=== PATIENT | male | born 1955 | race Two or more races ===

== ENCOUNTER → 2017-05-13 | Outpatient (CLI) | payer OTHER | END | disposition home or self-care (01) | LOC: TOM 07:45 | DX: K76.0 Fatty (change of) liver, not elsewhere classified (principal) ==

== ENCOUNTER → 2018-02-06 08:47 | Outpatient (CLI) | payer OTHER | END | disposition home or self-care (01) | LOC: LAB 08:47 | DX: I10 Essential (primary) hypertension (principal); N40.0 Benign prostatic hyperplasia without lower urinary tract symptoms; E03.8 Other specified hypothyroidism; E78.2 Mixed hyperlipidemia; E08.9 Diabetes mellitus due to underlying condition without complications; M25.572 Pain in left ankle and joints of left foot ==

== ENCOUNTER → 2018-05-17 | Emergency (ER) | payer OTHER ==
[~2018-05-17] VITALS: Ht 170.2 cm; Wt 90.7 kg
[~2018-05-17] MED LIST: COZAAR100 MG; CRESTOR10 MG; DIAZEPAM10 MG PO; NAPROXEN500 MG PO; SKELAXIN800 MG PO; VERAPAMIL ER240 MG
== END | disposition home or self-care (01) ==
LOC: ER 14:47
DX: G44.209 Tension-type headache, unspecified, not intractable (principal)

== ENCOUNTER 2018-05-19 15:20 | Outpatient (CLI) | payer OTHER | END 2018-05-19 15:33 | disposition home or self-care (01) | LOC: RAD 15:20 | DX: M62.830 Muscle spasm of back (principal) ==

== ENCOUNTER 2018-07-23 09:45 | Outpatient (CLI) | payer OTHER | END 2018-07-23 17:00 | disposition home or self-care (01) | LOC: TOM 09:45 | DX: M48.02 Spinal stenosis, cervical region (principal); M47.812 Spondylosis without myelopathy or radiculopathy, cervical region; M54.2 Cervicalgia ==

== ENCOUNTER → 2018-07-31 | Outpatient (CLI) | payer OTHER | END | disposition home or self-care (01) | LOC: NUCLEAR 14:30 | DX: M48.02 Spinal stenosis, cervical region (principal); M47.812 Spondylosis without myelopathy or radiculopathy, cervical region; M54.2 Cervicalgia ==

== ENCOUNTER 2019-05-05 09:11 | Outpatient (CLI) | payer OTHER | END 2019-05-05 09:31 | disposition home or self-care (01) | LOC: LAB 09:11 | DX: D50.8 Other iron deficiency anemias (principal); I10 Essential (primary) hypertension; D55.0 Anemia due to glucose-6-phosphate dehydrogenase [G6PD] deficiency; D51.1 Vitamin B12 deficiency anemia due to selective vitamin B12 malabsorption with proteinuria; E06.3 Autoimmune thyroiditis; R97.8 Other abnormal tumor markers; R97.20 Elevated prostate specific antigen [PSA]; D63.1 Anemia in chronic kidney disease; N18.9 Chronic kidney disease, unspecified; D63.8 Anemia in other chronic diseases classified elsewhere; E29.1 Testicular hypofunction; N39.0 Urinary tract infection, site not specified; R80.8 Other proteinuria; R94.4 Abnormal results of kidney function studies; Z80.0 Family history of malignant neoplasm of digestive organs; D51.3 Other dietary vitamin B12 deficiency anemia; H40.89 Other specified glaucoma; N40.0 Benign prostatic hyperplasia without lower urinary tract symptoms ==

== ENCOUNTER 2019-05-06 10:29 | Outpatient (CLI) | payer OTHER | END 2019-05-06 10:39 | disposition home or self-care (01) | LOC: LAB 10:29 | DX: D50.8 Other iron deficiency anemias (principal); D55.0 Anemia due to glucose-6-phosphate dehydrogenase [G6PD] deficiency; D63.1 Anemia in chronic kidney disease; Z80.0 Family history of malignant neoplasm of digestive organs; D51.3 Other dietary vitamin B12 deficiency anemia; N40.0 Benign prostatic hyperplasia without lower urinary tract symptoms; H40.89 Other specified glaucoma; N18.9 Chronic kidney disease, unspecified ==

== ENCOUNTER 2019-05-06 10:52 | Outpatient (CLI) | payer OTHER | END 2019-05-06 10:53 | disposition home or self-care (01) | LOC: SONOGRAMA 10:52 → MAMO-SONO 11:15 | DX: D50.8 Other iron deficiency anemias (principal); D51.3 Other dietary vitamin B12 deficiency anemia; I10 Essential (primary) hypertension; Z80.0 Family history of malignant neoplasm of digestive organs; H40.89 Other specified glaucoma; N40.0 Benign prostatic hyperplasia without lower urinary tract symptoms; E03.8 Other specified hypothyroidism ==

== ENCOUNTER 2019-06-08 07:37 | Outpatient (CLI) | payer OTHER | END 2019-06-08 07:39 | disposition home or self-care (01) | LOC: SONOGRAMA 07:37 | DX: E04.1 Nontoxic single thyroid nodule (principal) ==

== ENCOUNTER → 2019-08-25 10:46 | Outpatient (CLI) | payer OTHER | END | disposition home or self-care (01) | LOC: LAB 10:46 | DX: N39.0 Urinary tract infection, site not specified (principal); R80.8 Other proteinuria; R94.4 Abnormal results of kidney function studies; Z80.0 Family history of malignant neoplasm of digestive organs; D51.1 Vitamin B12 deficiency anemia due to selective vitamin B12 malabsorption with proteinuria; D50.8 Other iron deficiency anemias; D51.3 Other dietary vitamin B12 deficiency anemia; I10 Essential (primary) hypertension; H40.89 Other specified glaucoma; N40.0 Benign prostatic hyperplasia without lower urinary tract symptoms; R97.20 Elevated prostate specific antigen [PSA]; R97.0 Elevated carcinoembryonic antigen [CEA]; E04.2 Nontoxic multinodular goiter; D51.8 Other vitamin B12 deficiency anemias ==

== ENCOUNTER → 2019-12-04 | Outpatient (CLI) | payer OTHER | END | disposition home or self-care (01) | LOC: RAD 11:29 | PROVIDERS: ATTEND Podiatrist | DX: S93.601A Unspecified sprain of right foot, initial encounter (principal); S93.602A Unspecified sprain of left foot, initial encounter; S93.401A Sprain of unspecified ligament of right ankle, initial encounter; S93.402A Sprain of unspecified ligament of left ankle, initial encounter ==

== ENCOUNTER 2019-12-31 11:00 | Outpatient (CLI) | payer OTHER | END 2019-12-31 11:09 | disposition home or self-care (01) | LOC: SONOGRAMA 11:00 | PROVIDERS: ATTEND Pathology Anatomic Pathology & Clinical Pathology | DX: E04.2 Nontoxic multinodular goiter (principal) ==

== ENCOUNTER 2020-04-06 13:32 | Outpatient (CLI) | payer OTHER | END 2020-04-06 13:37 | disposition HB | LOC: RAD 13:32 | PROVIDERS: ATTEND Physical Medicine & Rehabilitation | DX: G95.89 Other specified diseases of spinal cord (principal); M62.830 Muscle spasm of back ==

== ENCOUNTER 2022-03-13 08:26 | Outpatient (CLI) | payer OTHER | END 2022-03-13 08:27 | disposition home or self-care (01) | LOC: LAB 08:26 | PROVIDERS: ATTEND Specialist | DX: I10 Essential (primary) hypertension (principal); E11.9 Type 2 diabetes mellitus without complications; N41.1 Chronic prostatitis ==

== ENCOUNTER 2022-06-27 15:02 | Outpatient (CLI) | payer OTHER | END 2022-06-27 15:13 | disposition home or self-care (01) | LOC: RAD 15:02 | PROVIDERS: ATTEND General Practice | DX: J70.5 Respiratory conditions due to smoke inhalation (principal) ==

== ENCOUNTER 2022-07-16 10:15 | Outpatient (CLI) | payer OTHER | END 2022-07-16 10:34 | disposition home or self-care (01) | LOC: TOM 10:15 | PROVIDERS: ATTEND General Practice | DX: K86.2 Cyst of pancreas (principal); K57.92 Diverticulitis of intestine, part unspecified, without perforation or abscess without bleeding ==

== ENCOUNTER 2022-09-04 10:47 | Outpatient (CLI) | payer OTHER | END 2022-09-04 11:06 | disposition home or self-care (01) | LOC: SONOGRAMA 10:47 | PROVIDERS: ATTEND Specialist | DX: N28.1 Cyst of kidney, acquired (principal) ==

== ENCOUNTER 2022-09-21 10:15 | Outpatient (CLI) | payer OTHER | END 2022-09-21 10:27 | disposition home or self-care (01) | LOC: TOM 10:15 | DX: J90 Pleural effusion, not elsewhere classified (principal); Z12.2 Encounter for screening for malignant neoplasm of respiratory organs ==

== ENCOUNTER 2023-11-20 11:32 | Outpatient (CLI) | payer OTHER | END 2023-11-20 11:37 | disposition home or self-care (01) | LOC: RAD 11:32 | PROVIDERS: ATTEND Physical Medicine & Rehabilitation | DX: M54.50 Low back pain, unspecified (principal) ==

== ENCOUNTER 2024-07-21 11:16 | Outpatient (CLI) | payer OTHER | END 2024-07-21 11:18 | disposition home or self-care (01) | LOC: TOM 11:16 | DX: J98.4 Other disorders of lung (principal); J99 Respiratory disorders in diseases classified elsewhere; Z12.2 Encounter for screening for malignant neoplasm of respiratory organs ==

== ENCOUNTER 2024-09-07 09:54 | Outpatient (CLI) | payer OTHER | END 2024-09-07 10:06 | disposition home or self-care (01) | LOC: SONOGRAMA 09:54 | DX: J98.6 Disorders of diaphragm (principal); R10.84 Generalized abdominal pain ==

== ENCOUNTER 2024-09-15 08:54 | Outpatient (CLI) | payer OTHER | END 2024-09-15 09:03 | disposition home or self-care (01) | LOC: TOM 08:54 | DX: R10.84 Generalized abdominal pain (principal); J98.6 Disorders of diaphragm | CPT/HCPCS: 71270; 74178; Q9965 ==

== ENCOUNTER 2024-12-17 05:19 | Emergency (ER) | payer OTHER ==
[~2024-12-17] VITALS: Ht 170.2 cm; Wt 81.6 kg
[2024-12-17] MEDS ORDERED: AZELASTINE137 MCG/0. NASAL (05:29)
[2024-12-17] MEDS ORDERED: ALPHAGAN P5 M2 OP (05:30)
[2024-12-17] MEDS ORDERED: VENTOLIN HFA18 GM (05:31)
[2024-12-17] MEDS ORDERED: KETOROLAC TROMETHAMINE 30 MG VIAL IV STA (05:49)
[2024-12-17] MEDS ORDERED: 0.9 % SODIUM CHLORIDE 1,000 ML IV ONE (06:00)
[2024-12-17] MEDS ORDERED: DIATRIZOATE MEGLUMINE, SODIUM 30 ML BOTTLE ONE (06:06)
[2024-12-17] MEDS ORDERED: KETOROLAC TROMETHAMINE 30 MG VIAL ONE (06:06)
[2024-12-17 06:56] LABS: BASO % 0.6 % (0.1-1.2); EOS # 0.30 (0.04-0.54); EOS % 2.8 % (0.7-7.0); LYMPH # 1.20 (1.18-3.74); LYMPH % 11.3 % (19.3-53.1); MEAN PLATELET VOLUME 8.90 fl (9.4-12.4); MONO # 1.01 (0.24-0.82); MONO % 9.5 % (4.7-12.5); NEUT # 8.02 (1.56-6.13); NEUT % 75.2 % (34.0-71.1); RED CELL DISTRIBUTION WIDTH 13.9 % (11.6-14.4)
[2024-12-17 07:20] LABS: INR < 0.93
[2024-12-17 07:45] LABS: ALT/SGPT 29.0 U/L (12-78); AST/SGOT 21.0 U/L (15-37); BILIRUBIN TOTAL 0.38 mg/dL (0.3-1.2); BUN CREA RATIO 29.0 (7.0-25.0); CREATININE SERUM 1.22 mg/dL (0.70-1.30); GFR 58.9; GLOBULINA 3.7 G/DL (2.4-3.5); GLUCOSE FASTING 93.0 mg/dL (65-100); OSMOLALITY SERUM 291.0 MOSM/KG (275-295)
[2024-12-17 07:48] LABS: URINE APPEARANCE Clear; URINE BILIRRUBIN Negative (NEGATIVE); URINE BLOOD NHT; URINE COLOR Yellow; URINE GLUCOSE Negative (NEGATIVE); URINE KETONE 15 (NEGATIVE); URINE LEUKOCYTE Moderate; URINE NITRATE Positive; URINE PROTEIN 30 (NEGATIVE); URINE UROBILINOGEN 0.2 E.U./dl
[2024-12-17 07:51] LABS: URINE BACTERIA 174.0 uL (0.0-1933); URINE EPITHELIAL CELLS 6.1 uL (0.0-38.8); URINE RBC 28.4 uL (0.0-20.8); URINE WBC 251.5 uL (0.0-23.2)
[2024-12-17 07:54] LABS: URINE CAST 0.29 uL (0.0-1.40)
[2024-12-17] MEDS ORDERED: CIPROFLOXACIN IN 5 % DEXTROSE 400 MG/200 ML PIGGYBAG IV STA (07:57)
[2024-12-17] MEDS ORDERED: CIPROFLOXACIN IN 5 % DEXTROSE 400 MG/200 ML PIGGYBAG IV ONE (07:59)
== END 2024-12-17 11:54 | disposition home or self-care (01) ==
LOC: ER 05:47
PROVIDERS: General Practice
DX: N39.0 Urinary tract infection, site not specified (principal); R10.32 Left lower quadrant pain; I10 Essential (primary) hypertension
CPT/HCPCS: 36415; 74177; 99284; Q9965

== ENCOUNTER 2025-01-07 13:34 | Outpatient (CLI) | payer OTHER ==
[~2025-01-07 13:34] MED LIST changes: +ALPHAGAN P5 M2 OP; +AZELASTINE137 MCG/0. NASAL; +VENTOLIN HFA18 GM
== END 2025-01-07 13:41 | disposition home or self-care (01) ==
LOC: SONOGRAMA 13:34
PROVIDERS: ATTEND Specialist/Technologist, Other Nephrology
DX: R10.9 Unspecified abdominal pain (principal); N18.30 Chronic kidney disease, stage 3 unspecified; R31.9 Hematuria, unspecified

== ENCOUNTER 2025-01-11 12:41 | Outpatient (CLI) | payer OTHER | END 2025-01-11 12:46 | disposition home or self-care (01) | LOC: RAD 12:41 | DX: R07.89 Other chest pain (principal) ==

== ENCOUNTER 2025-04-09 12:48 | Emergency (ER) | payer OTHER ==
[~2025-04-09] VITALS: Ht 170.2 cm; Wt 83.9 kg
[2025-04-09 13:06] VITALS: BP 127/67; O2SAT 98
[2025-04-09] MEDS ORDERED: TRAMADOL HCL 50 MG TABLET PO STA (14:24)
[2025-04-09] MEDS ORDERED: KETOROLAC TROMETHAMINE 15 MG VIAL IV STA (14:24)
[2025-04-09] MEDS ORDERED: SODIUM CHLORIDE 0.45 % 1,000 ML IV STA (14:25)
[2025-04-09] MEDS ORDERED: KETOROLAC TROMETHAMINE 30 MG VIAL ONE (15:00)
[2025-04-09 15:32] LABS: BASO % 0.4 % (0.1-1.2); EOS # 0.14 (0.04-0.54); EOS % 0.9 % (0.7-7.0); LYMPH # 1.31 (1.18-3.74); LYMPH % 8.0 % (19.3-53.1); MEAN PLATELET VOLUME 8.50 fl (9.4-12.4); MONO # 1.12 (0.24-0.82); MONO % 6.8 % (4.7-12.5); NEUT # 13.74 (1.56-6.13); NEUT % 83.4 % (34.0-71.1); RED CELL DISTRIBUTION WIDTH 13.8 % (11.6-14.4)
[2025-04-09 15:59] LABS: ALT/SGPT 31.0 U/L (12-78); AST/SGOT 22.0 U/L (15-37); BILIRUBIN TOTAL 0.8 mg/dL (0.3-1.2); BUN CREA RATIO 19.0 (7.0-25.0); CREATININE SERUM 1.08 mg/dL (0.70-1.30); GFR 67.79; GLOBULINA 3.4 G/DL (2.4-3.5); GLUCOSE FASTING 98.0 mg/dL (65-100); OSMOLALITY SERUM 288.0 MOSM/KG (275-295)
[2025-04-09 16:57] LABS: URINE APPEARANCE Clear; URINE BILIRRUBIN Negative (NEGATIVE); URINE BLOOD Small; URINE COLOR Dark Yellow; URINE GLUCOSE Negative (NEGATIVE); URINE KETONE 15 (NEGATIVE); URINE LEUKOCYTE Moderate; URINE NITRATE Negative; URINE PROTEIN Negative (NEGATIVE); URINE UROBILINOGEN 0.2 E.U./dl
[2025-04-09 17:02] LABS: URINE BACTERIA 524.9 uL (0.0-1933); URINE RBC 63.6 uL (0.0-20.8); URINE WBC 637.3 uL (0.0-23.2)
[2025-04-09 17:07] LABS: URINE CAST 0.00 uL (0.0-1.40); URINE EPITHELIAL CELLS 0.3 uL (0.0-38.8)
[2025-04-09] MEDS ORDERED: METRONIDAZOLE/SODIUM CHLORIDE 500 MG/100 ML PIGGYBACK IV STA (17:13)
[2025-04-09] MEDS ORDERED: CIPROFLOXACIN IN 5 % DEXTROSE 400 MG/200 ML PIGGYBAG IV STA (17:13)
[2025-04-09] MEDS ORDERED: METRONIDAZOLE/SODIUM CHLORIDE 500 MG/100 ML PIGGYBACK IV ONE (18:05)
[2025-04-09] MEDS ORDERED: CIPROFLOXACIN IN 5 % DEXTROSE 400 MG/200 ML PIGGYBAG IV ONE (18:05)
== END 2025-04-09 21:59 | disposition home or self-care (01) ==
LOC: ER 12:49
PROVIDERS: General Practice
DX: N20.0 Calculus of kidney (principal); R10.A1 Flank pain, right side
CPT/HCPCS: 36415; 74176; 96365; 99284; J0744; J1885; J3490

== ENCOUNTER → 2025-04-21 | Emergency (ER) | payer OTHER ==
[~2025-04-21] VITALS: Ht 167.6 cm; Wt 72.6 kg
[~2025-04-21] MED LIST changes: +0.9 % SODIUM CHLORIDE 1,000 ML IV SCH; +CEFTRIAXONE SODIUM 1,000 MG VIAL IV ONE; +FAMOTIDINE/PF 20 MG/2 ML VIAL IV ONE; +KETOROLAC TROMETHAMINE 30 MG VIAL IM ONE; +TAMSULOSIN HCL 0.4 MG CAP PO ONE; +TRAMADOL HCL 50 MG TABLET PO ONE
[2025-04-21 11:44] LABS: BASO % 0.2 % (0.1-1.2); EOS # 0.07 (0.04-0.54); EOS % 0.3 % (0.7-7.0); LYMPH # 0.96 (1.18-3.74); LYMPH % 4.6 % (19.3-53.1); MEAN PLATELET VOLUME 8.60 fl (9.4-12.4); MONO # 1.15 (0.24-0.82); MONO % 5.6 % (4.7-12.5); NEUT # 18.38 (1.56-6.13); NEUT % 88.9 % (34.0-71.1); RED CELL DISTRIBUTION WIDTH 13.4 % (11.6-14.4)
[2025-04-21 12:10] LABS: URINE APPEARANCE Clear; URINE BILIRRUBIN Negative (NEGATIVE); URINE BLOOD Negative; URINE COLOR Yellow; URINE GLUCOSE Negative (NEGATIVE); URINE KETONE Negative (NEGATIVE); URINE LEUKOCYTE Moderate; URINE NITRATE Positive; URINE PROTEIN 30 (NEGATIVE); URINE UROBILINOGEN 0.2 E.U./dl
[2025-04-21 12:12] LABS: ALT/SGPT 32.0 U/L (12-78); AST/SGOT 17.0 U/L (15-37); BILIRUBIN TOTAL 1.47 mg/dL (0.3-1.2); BUN CREA RATIO 13.0 (7.0-25.0); CREATININE SERUM 1.33 mg/dL (0.70-1.30); GFR 53.31; GLOBULINA 3.5 G/DL (2.4-3.5); GLUCOSE FASTING 114.0 mg/dL (65-100); OSMOLALITY SERUM 278.0 MOSM/KG (275-295)
[2025-04-21 12:13] LABS: URINE BACTERIA 68.6 uL (0.0-1933); URINE EPITHELIAL CELLS 3.8 uL (0.0-38.8); URINE RBC 2.4 uL (0.0-20.8); URINE WBC 157.9 uL (0.0-23.2)
[2025-04-21 12:15] LABS: URINE CAST 0.00 uL (0.0-1.40)
[2025-04-21 12:42] LABS: ERYTHROCYTE SEDIMENTATION RATE 19 mm/hr (0-20)
[2025-04-21 22:02] VITALS: BP 132/77; O2SAT 97
== END | disposition home or self-care (01) ==
LOC: ER 09:52
PROVIDERS: Student in an Organized Health Care Education/Training Program
DX: R10.A1 Flank pain, right side (principal); K57.30 Diverticulosis of large intestine without perforation or abscess without bleeding; I10 Essential (primary) hypertension; N39.0 Urinary tract infection, site not specified
CPT/HCPCS: 36415; 74176; 96365; 96366; 96372; 99284; J0696; J1885; J3490; J7030